=== PATIENT | male | born 1995 | race Caucasian/White ===

== ENCOUNTER 2020-12-02 08:53 | Emergency (ER) | payer OTHER ==
[~2020-12-02] VITALS: Ht 172.7 cm; Wt 68.0 kg
--- NOTE | 2020-12-02 09:18 | NUR ---
TO ER BED 13 FOR EVAL
--- NOTE | 2020-12-02 10:34 | NUR ---
Patient discharged to home in stable condition. Written and verbal after care instructions given. Patient verbalizes understanding of instruction.
[2020-12-02 10:35] VITALS: BP 118/70
== END 2020-12-02 10:35 ==
LOC: ER 08:54
DX: S00.83XA Contusion of other part of head, initial encounter (principal); H92.02 Otalgia, left ear; Y08.89XA Assault by other specified means, initial encounter; Y93.89 Activity, other specified; Y92.89 Other specified places as the place of occurrence of the external cause; Y99.8 Other external cause status
CPT/HCPCS: 70486-TC